=== PATIENT | male | born 1960 | race Caucasian/White ===

== ENCOUNTER 2022-03-22 07:35 | Outpatient (CLI) | payer MEDICARE, MEDICAID, SELFPAY ==
--- NOTE | 2022-03-22 17:43 | P.NST_ITS ---
Nuclear Stress Test INDICATIONS Indications: CP PROCEDURE Procedure Performed: Myocardial Perf Spect-Multi Procedure: Patient underwent a lexiscan stress test and immediately was injected with 34.0 mCi of cardiolyte. Multiple tomographic images were obtained. These are of good quality. There is evidence of small size, mild severity inferior perfusion defect with stress imaging. A separate resting images were obtained after patient was injected with 10.4 mCi of cardiolyte. Multiple tomographic images were obtained. These are of good quality. There is evidence of moderate size, moderate severity inferior per fusion defect with rest imaging. CONCLUSION Conclusion: 1. Myocardial perfusion imaging demonstrating reverse redistribution in inferior wall suggestive of diaphragmatic attenuation artifact. 2. No evidence of reversible ischemia. 3. Left ventriculogram demonstrates normal measured ejection fraction of 68% and no wall motion abnormalities. 4. TID score of 0.96 is normal.
== END 2022-03-22 07:36 | disposition home or self-care (01) ==
PROVIDERS: PCP Family Medicine; Visit Provider Family Medicine
DX: R07.9 Chest pain, unspecified (principal)
CPT/HCPCS: 78452; 93017; A9502; J2785

== ENCOUNTER 2024-03-21 13:22 | Inpatient (IN) | payer MEDICARE, SELFPAY ==
--- NOTE | ~2024-03-21 | XR_ITS ---
EXAMINATION: XR chest 1V DATE: 03/21/2024 14:12 INDICATION: Fall TECHNIQUE: frontal view of the chest was obtained. COMPARISON: Chest radiograph dated 03/28/[address] dated 12/23/2014 FINDINGS: Volume loss in right hemithorax with blunting at the right costophrenic angle consistent with prior r ight lower lobectomy as seen on prior CT. Chronic calcified nodule in the left lower lung zone consis tent with old granulomatous disease. No pneumonia, pulmonary edema, pleural effusion or pneumothorax. The cardiomediastinal silhouette is normal. There is deformity of the anterior right first and secon d ribs which appear to fuse anteriorly. IMPRESSION: 1. Status post right lower lobectomy. No acute cardiopulmonary disease Reviewed, dictated and finalized at location B.
--- NOTE | ~2024-03-21 | XR_ITS ---
EXAMINATION: XR hip LT 2V w AP pelvis DATE: 03/21/2024 14:12 INDICATION: Left hip injury. Fall. TECHNIQUE: An anteroposterior view of the pelvis and 2 views of left hip were obtained. COMPARISON: None. FINDINGS: There is an intertrochanteric fracture of proximal left femur. The distal fracture fragment demonstrates mild posterior angulation. There is mild osteoarthritis of the hips. IMPRESSION: 1. Intertrochanteric fracture of proximal left femur. 2. Mild osteoarthritis of the hips. Reviewed, dictated and finalized at location A.
--- NOTE | ~2024-03-21 | CT_ITS ---
EXAMINATION: CT hip LT wo con DATE: 03/21/2024 15:08 INDICATION: Left hip fracture. TECHNIQUE: Computed tomography (CT) of the left hip was performed without intravenous contrast. Autom ated exposure control and iterative reconstruction technique were employed. The dose-length product w as 491.58 mGy-cm. COMPARISON: Pelvis and left hip radiographs 03/21/2024 FINDINGS: There is a comminuted intertrochanteric fracture of proximal left femur. The distal fractur e main distal fracture fragment demonstrates 24 degrees posterior angulation and 10 degrees varus ang ulation. There is mild left hip osteoarthritis. IMPRESSION: 1. Comminuted intertrochanteric fracture of proximal left femur. 2. Mild left hip osteoarthritis. Reviewed, dictated and finalized at location A.
--- NOTE | ~2024-03-21 | XR_ITS ---
EXAMINATION: XR knee LT 3V DATE: 03/21/2024 14:12 INDICATION: Left knee injury. Fall. TECHNIQUE: 3 views of left knee were obtained. COMPARISON: None. FINDINGS: Alignment is normal. No fracture. There is mild tricompartmental osteoarthritis. No knee gabriella int effusion. IMPRESSION: 1. Mild left knee osteoarthritis. Reviewed, dictated and finalized at location A.
--- NOTE | ~2024-03-21 | XR_ITS ---
EXAMINATION: XR surgery orthopedic DATE: 03/22/2024 13:20 INDICATION: Intratrochanteric fracture for internal fixation TECHNIQUE: 9 fluoroscopic images of the left hip and femur were obtained during procedure performed madhu Arellano. Radiologist was not present for the imaging or procedure. The amount of fluoroscopy t vitaly used during this procedure was 1.0 minutes. Total DAP was 2.717 Gycm^2 COMPARISON: 03/21/24 FINDINGS: Interval open reduction internal fixation of the previously seen intertrochanteric fracture the proximal left femur. The fracture is fixed with and lateral antegrade intramedullary danisha with fe moral neck dynamic compression screw and proximal diaphyseal interlocking screw. Alignment post fixat ion appears near anatomic alignment with residual mild posterior displacement. Mild left hip osteoart hritis better appreciated on the prior radiographs. No new fractures identified. IMPRESSION: 1. Near-anatomic alignment post open reduction internal fixation of intertrochanteric fracture the pr oximal left femur. Reviewed, dictated and finalized at location B. IMPRESSION: 1. Near-anatomic alignment post open reduction internal fixation of intertrocha nteric fracture the proximal left femur.
[2024-03-21 13:32] VITALS: BP 115/77; PULSE 98; RESP 18; TEMP 36.7; O2SAT 97
--- NOTE | 2024-03-21 14:09 | ECG_ITS ---
Test Date: 2024-03-21 14:15:54 Measurements Intervals [place] Rate: 91 P: 19 AK: 117 QRS: 89 QRSD: 101 T: 80 QT: 359 QTc: 442 Interpretive Statements SINUS RHYTHM INCOMPLETE RIGHT BUNDLE BRANCH BLOCK BASELINE ARTIFACT- I, II, III, AVR, AVL, AVF BORDERLINE ECG No previous ECG available for comparison Electronically Signed On 03-21-2024 14:39:10 CDT by Umesh Avelar D.O.
[2024-03-21] MEDS: MORPHINE SULFATE (*CRX) 4 MG/ML INJ IV PUSH (14:11)
[2024-03-21 14:20] VITALS: BP 92/75; PULSE 86; RESP 18; O2SAT 95
[2024-03-21 14:24] LABS: Basophils Absolute Auto 0.1 K/mm3 (0.0-0.1); Basophils Percent Auto 0.8 % (0.2-1.2); Eosinophils Absolute Auto 0.3 K/mm3 (0-0.3); Eosinophils Percent Auto 4.5 % (0-4.4); Hematocrit 48.8 % (42.0-52.0); Hemoglobin 15.8 g/dL (14.0-18.0); Immature Granulocyte Absolute 0.04 K/mm3 (0.00-0.031); Immature Granulocyte Percent A 0.5 % (0-0.5); Lymphocytes Absolute Auto 1.43 K/mm3 (0.9-3.2); Lymphocytes Percent Auto 19.1 % (18.3-44.2); Mean Corpuscular HGB Conc 32.4 g/dl (32-36); Mean Corpuscular Hemoglobin 31.1 pg (26-34); Mean Corpuscular Volume 96.1 fl (80-100); Mean Platelet Volume 10.8 fl (7.4-10.4); Monocytes Absolute Auto 0.7 K/mm3 (0.1-0.6); Monocytes Percent Auto 8.7 % (2.6-8.5); Neutrophils Percent Auto 66.4 % (45.5-73.1); Platelet Count Result 216 k/mm3 (150-375); Red Blood Count 5.08 M/mm3 (4.6-6.20); Red Cell Distribution Width 13.3 % (11.5-14.5); White Blood Count 7.5 K/mm3 (4.5-10.0)
[2024-03-21] MEDS: SODIUM CHLORIDE 0.9% IV 1,000 ML 999 ML IV CONT (14:35)
[2024-03-21 14:36] LABS: Partial Thromboplastin Time 28.4 Seconds (22.3-36.8); Prothrombin Time 13.4 Seconds (11.1-14.7)
[2024-03-21 14:40] VITALS: BP 127/71; PULSE 86; RESP 14; O2SAT 96
[2024-03-21 14:42] LABS: Alanine Aminotransferase 16 U/L (6-50); Albumin Level 4.1 g/dL (3.5-5.1); Alkaline Phosphatase 72 U/L (38-126); Anion Gap 8 mmol/L (4-12); Aspartate Amino Transferase 33 U/L (17-59); Bilirubin,Total 0.7 mg/dL (0.2-1.3); Blood Urea Nitrogen 23 mg/dL (9-20); Calcium 8.8 mg/dL (8.4-10.2); Carbon Dioxide 28 mmol/L (22-30); Chloride 102 mmol/L (98-107); Estimated CRCL calculation 50 ml/min; Estimated Glomerular Filt Rate > 60; Glucose 97 mg/dL (65-110); Potassium 4.9 mmol/L (3.4-5.0); Sodium 138 mmol/L (137-145)
--- NOTE | 2024-03-21 14:53 | ED.FALL ---
HPI - Fall General Chief Complaint: Fall Stated Complaint: left hip injury Time Seen by Provider: 03/21/24 13:28 History of Present Illness HPI Narrative: Patient is a 63-year-old male who presents ER after a fall. He was trying to open his walker when getting out of his car when it did not open causing him to fall onto his left side. He had sudden-onset pain in his hip and cannot stand up. He feels like there is a deformity. Denies striking his head or losing consciousness. He is not on any blood thinning medications. He did hit his knee in the fall as well. Pain is worse with movement of the lower extremity. No numbness or tingling. Related Data Home Medications Medication Instructions Recorded Confirmed duloxetine 60 mg capsule,delayed 60 mg PO BID 03/21/24 03/21/24 release Allergies Allergy/AdvReac Type Severity Reaction Status Date / Time No Known Allergies Allergy Unknown Verified 03/22/22 08:39 Review of Systems Review of Systems: All systems reviewed & are unremarkable except as noted in HPI and below Constitutional: Constitutional: Reports no additional constitutional complaints ENT: Reports system reviewed and no additional complaints, except as documented Cardiovascular: Cardiovascular: Reports no additional cardiovascular complaints Respiratory: Respiratory: Reports no additional respiratory complaints Musculoskeletal: Musculoskeletal: Reports arthralgias, Reports joint swelling and Denies muscle cramps Neurologic: Reports system reviewed and no additional complaints, except as documented [facility] Past Medical History Medical History (Updated 03/21/24 @ 19:16 by Zachary Martin MD) Cervical vertebral fusion Closed intertrochanteric fracture of left hip Depression Fall from standing Lung cancer Lupus Paraneoplastic syndrome Surgical History Surgical History History of lobectomy of lung Social History Social History Smoking packs per day: 1 Smoking cigarettes per day: 20.0 Smoking status: Current every day smoker Tobacco type: cigarettes Alcohol intake: never Substance use: current Substance use type: marijuana Do You Feel Safe in your Home?: Yes Lack of Transportation: No Lack of Food: Never True Current Housing: I Have Housing Concerned About Future Housing: No Difficulty Paying Gas/Electric Bills: No Difficulty Paying for Meds: No Currently Unemployed: No Education: Decline to Answer Difficulty w/ Childcare or Family Care: No Spiritual care concerns: No Exam Narrative: GENERAL: Well-appearing, well-nourished, and in no acute distress. HEAD: Normocephalic, atraumatic. ENT: Mucous membranes moist. CHEST: Clear to auscultation. No respiratory distress. HEART: Regular rate and rhythm. Normal peripheral pulses. ABDOMEN: Soft, nontender, nondistended. EXTREMITIES: Left lower extremity with abrasion over the knee in tenderness over left hip with limited range of motion due to pain. After pain medication able get out to full extension and no external rotation or shortening. SKIN: Warm, dry, no rash. NEURO: No focal deficits. Alert and oriented x3. PSYCH: Normal mood and affect. Course Course Emergency Course: Orthopedic surgery consulted for hip fracture. At on CT scan at their request. Admit to hospitalist service. NPO at midnight. Patient where of diagnosis and treatment plan and need for surgery. Vital Signs Vital signs: Vital Signs Temperature 98.1 F 03/21/24 13:32 Pulse Rate 98 03/21/24 13:32 Respiratory Rate 18 03/21/24 13:32 Blood Pressure 115/77 03/21/24 13:32 Pulse Oximetry 97 03/21/24 13:32 Oxygen Delivery Room Air 03/21/24 13:32 Temperature 98.1 F 03/21/24 13:32 Pulse Rate 81 03/21/24 15:32 Respiratory Rate 20 03/21/24 15:32 Blood Pressure 119/74 03/21/24 15:32 Pu
[2024-03-21 15:32] VITALS: BP 119/74; PULSE 81; RESP 20; O2SAT 100
--- NOTE | 2024-03-21 15:39 | PM.CNOR ---
Assessment and Plan Assessment and plan (1) Closed intertrochanteric fracture of left hip: Qualifiers: Encounter type: initial encounter Fracture alignment: displaced Qualified Code(s): S72.142A - Displaced intertrochanteric fracture of left femur, initial encounter for closed fracture Code(s): S72.142A - Displaced intertrochanteric fracture of left femur, initial encounter for closed fracture Status: Acute Assessment and Plan: New patient evaluation for chief complaint fall with left hip injury. History, physical exam and radiographs reviewed with the patient. Discussed the condition, nature, etiology and course of natural history with the patient. Treatment options including surgical and nonoperative treatment were reviewed. Risks and benefits of each as well as alternatives reviewed. The patient's questions were answered. Conservative treatment ice, mechanical DVT prophylaxis, pain control. (2) Fall from standing: Qualifiers: Encounter type: initial encounter Qualified Code(s): W19.XXXA - Unspecified fall, initial encounter Code(s): W19.XXXA - Unspecified fall, initial encounter Status: Acute (3) Foot drop, left: Code(s): M21.372 - Foot drop, left foot Status: Acute Assessment and Plan: S/P surgery. Still with drop foot. Plan Discussed nonoperative and operative treatment options with the patient. Risks and benefits of each as well as alternatives were reviewed. All of the patient's questions were answered. The risks of surgery reviewed including but not limited to: Neurovascular damage, wound complication, infection, blood clot, pulmonary embolus, stroke, myocardial infarction, and anesthetic risks up to and including . Continued pain and possible dysfunction were explained. Specific risks of the procedure including later recurrence of deformity. No guarantees were offered. If hardware used, discussed risk of failure/ breakage and possible need for removal. If complications occur, the patient understands the need for further treatment, possible further surgery. specific surgical treatment with reduction of the fracture on a fracture table and stabilization with intramedullary hip screw/trochanteric nail discussed. Patient verbalizes understanding and wishes to proceed. PLAN: left hip trochanteric nail History of Present Illness HPI Consult date: 03/22/24 Requesting physician: Zachary Martin MD Consult reason: fracture ( left hip) Chief complaint: intertrochanteric fracture Narrative: 63-year-old with history of lung cancer who normally ambulates with walker. Was at home adjusting his walker when he fell onto the left side. Described left hip pain. Inability to ambulate or put weight on left leg. Brought to the emergency room at [facility]. found to have left hip fracture. History of previous right lower lobe resection secondary to cancer. 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 Underwent some sort of surgical peroneal plasty to help with left lower extremity drop foot. Complains of continued drop foot on the left side with decreased mobility of the ankle. Review of Systems Constitutional: Constitutional: Denies fever(s) Eyes: Eyes: Denies blurry vision ENT: Reports Normal hearing present Cardiovascular: Cardiovascular: Denies chest pain and Denies dyspnea Respiratory: Respiratory: Denies dyspnea and Denies wheezing Gastrointestinal: Gastrointestinal: Denies abdominal pain Genitourinary: Genitourinary: Denies urinary urgency Musculoskeletal: Musculoskeletal: Reports as per HPI and Denies numbness Integumentary/Breasts: Skin/Breast: Denies changing lesions and Denies sores Neurologic: Reports Normal hearing present, Denies behavioral changes, Denies confusion, Denies numbness and Denies convulsions Psychiatric: Psychiatric: Denies behavioral changes, Denies confusion and Denies h
--- NOTE | 2024-03-21 16:53 | PM.IMHP ---
H&P: HPI History of Present Illness Date/Time: 03/21/24 16:53 Chief Complaint: Fall Narrative: 63 y/o M presents here with fall with PMH of lupus, depression, lung cancer s/p lobectomy, g-tube in place, and paraneoplastic syndrome. The patient presents here from home via EMS for further evaluation of left hip pain s/p ground level fall. The patient reports he was transferring from his car to his walker when the walker did not open up sliding forward and patient fell to the left. The patient landed first on his left knee and then his left hip. He denies head strike or loss of consciousness. Patient was unable to bear weight on the left lower extremity or move his left lower extremity without significant pain after the fall. Patient denies focal numbness, tingling, or weakness. Patient reports at baseline he utilizes a power chair and walker for mobility assistance. No other complaints at this time. Initial VS at presentation: 98.1? F, HR 98, RR 18, 115/77, and 97% on RA. ED workup showed: No leukocytosis, no anemia, normal coags, no significant electrolyte derangements, creatinine 1.2 and GFR >60. Hip and pelvis XR showed an intratrochanteric fracture of the proximal left femur. CXR showed s/p right lower lobectomy, otherwise no acute cardiopulmonary disease. CXR showed mild left knee osteoarthritis. Hip CT showed a comminuted intratrochanteric fracture of the proximal left femur and mild left hip osteoarthritis. Review of Systems Review of Systems: All systems reviewed & are unremarkable except as noted in HPI and below PMFSH Past Medical History Medical History Cervical vertebral fusion Closed intertrochanteric fracture of left hip Depression Fall from standing G tube feedings Placed in 2010 Lung cancer Lupus SLE Paraneoplastic syndrome Surgical History Surgical History History of lobectomy of lung History of spinal fusion (1995) Social History Social History Smoking packs per day: 1 Smoking cigarettes per day: 20.0 Smoking status: Current every day smoker Tobacco type: cigarettes Alcohol intake: never Substance use: current Substance use type: marijuana Do You Feel Safe in your Home?: Yes Lack of Transportation: No Lack of Food: Never True Current Housing: I Have Housing Concerned About Future Housing: No Difficulty Paying Gas/Electric Bills: No Difficulty Paying for Meds: No Currently Unemployed: No Education: Decline to Answer Difficulty w/ Childcare or Family Care: No Spiritual care concerns: No Meds Home Medications and Allergies Home Medications Medication Instructions Recorded Confirmed Type duloxetine 60 mg capsule,delayed 60 mg PO BID 03/21/24 03/21/24 History release Allergies Allergy/AdvReac Type Severity Reaction Status Date / Time No Known Allergies Allergy Unknown Verified 03/22/22 08:39 Vital Signs Vital Signs - 24 hr 03/21/24 13:32 03/21/24 14:20 03/21/24 14:40 Temperature 98.1 F Pulse Rate 98 86 86 Respiratory Rate 18 18 14 Blood Pressure 115/77 92/75 L 127/71 Pulse Oximetry 97 95 96 Oxygen Delivery Room Air 03/21/24 15:32 Temperature Pulse Rate 81 Respiratory Rate 20 Blood Pressure 119/74 Pulse Oximetry 100 Oxygen Delivery Exam Narrative: dysarthria, chronic. feet cool to the touch, symmetric. DP pulse 1+ bilaterally. No shortening or rotation of LLE. tenderness over left hip. Const: General: comfortable and no acute distress Other: , male, nontoxic appearance HENMT: Face/Nose/Sinus: Normal nares present Mouth: Yes moist mucous membranes Eyes: General: appearance normal, both eyes and all related structures Sclera: sclerae normal Pupils: Equal, round and reactive pupils present EOM: EOMs intact bilate
[2024-03-21] MEDS: MORPHINE SULFATE (*CRX) 2 MG/ML INJ IV PUSH (17:02)
[2024-03-21 17:04] VITALS: BMI 18.1
--- NOTE | 2024-03-21 17:11 | ADMGEN ---
This patient, Nirmal Chauhan, was admitted to Medical Room 249-01. Patient/family oriented to hospital policies and general routines including ID bracelet, bed and alarms, visiting hours, pain management, procedures, bathroom and other care routines, personal items, smoking policy, room service/diet, and visiting hours. Information on how to activate the Rapid Response Team has been discussed. Patient/Family are encouraged to report perceived risks to care and to ask questions if they do not understand what they are told or what they should do.
--- NOTE | 2024-03-21 18:53 | PC.NURSE ---
Patient with G-tube from home. States that since 2009 patient has been unable to swallow. Per patient, he normally blends up food throughout the day and put it through his tube. 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 Provider unsure and states she will consult another provider and get back to me.
[2024-03-21 21:59] VITALS: BP 129/80; PULSE 88; RESP 18; TEMP 36.7; O2SAT 97
[2024-03-22] VITALS (16 sets, daily range): BP systolic 117–147; BP diastolic 62–77; PULSE 68–85; RESP 14–18; TEMP 36.3–37.1; O2SAT 93–100; BMI 18.1
--- NOTE | 2024-03-22 07:22 | PC.NURSE ---
Pt taken to OR via bed @ 0385.
[2024-03-22] MEDS: ACETAMINOPHEN 500 MG TABLET 1000 MG PO (07:50)
[2024-03-22] MEDS: KETOROLAC 15 MG/ML VIAL (*BKC) IV PUSH (07:50)
[2024-03-22] MEDS: LACTATED RINGERS 1,000 ML 30 ML IV CONT (07:50)
--- NOTE | 2024-03-22 07:52 | WPDHPUPDATE1 ---
History and Physical Update Update Date/Time: 03/22/24 07:52 History and Physical has been reviewed, including an updated exam of the patient. There are NO changes in the patient's condition. Risks, benefits, and alternatives have been discussed and questions answered. Patient agrees to proceed with procedure.
--- NOTE | 2024-03-22 08:27 | WPDANESEPPF ---
Anes - Initial Pre Proc Eval Procedure: Operation Date: 03/22/24 08:30 Proposed Procedures p Left Hip Trochchanteric Nail - Frank Francis MD Date/Time: 03/22/24 08:27 Surgeon: Lois Adrian APRN Pre Op Diagnosis: intertrochanteric fracture Patient Data Age: 63 Gender: M Height: 1.85 m Weight: 62.3 kg Last Vital Signs Temp 37.1 C 03/22/24 07:47 Pulse 85 03/22/24 07:47 Resp 18 03/22/24 04:00 BP 146/62 H 03/22/24 07:47 Pulse Ox 96 03/22/24 08:07 O2 Del Method Room Air 03/22/24 08:07 FiO2 21 03/22/24 08:07 Allergies Allergy/AdvReac Type Severity Reaction Status Date / Time No Known Allergies Allergy Unknown Verified 03/22/22 08:39 Home Medications Medication Instructions Recorded Confirmed Type duloxetine 60 mg capsule,delayed 60 mg PO BID 03/21/24 03/21/24 History release Laboratory Tests 03/21/24 14:15 WBC 7.5 K/mm3 (4.5-10.0) RBC 5.08 M/mm3 (4.6-6.20) Hgb 15.8 g/dL (14.0-18.0) Hct 48.8 % (42.0-52.0) MCV 96.1 fl (80-100) MCH 31.1 pg (26-34) MCHC 32.4 g/dl (32-36) RDW 13.3 % (11.5-14.5) Plt Count 216 k/mm3 (150-375) MPV 10.8 H fl (7.4-10.4) Immature Gran % (Auto) 0.5 % (0-0.5) Neut % (Auto) 66.4 % (45.5-73.1) Lymph % (Auto) 19.1 % (18.3-44.2) [place] % (Auto) 8.7 H % (2.6-8.5) Eos % (Auto) 4.5 H % (0-4.4) Baso % (Auto) 0.8 % (0.2-1.2) Lymph # (Auto) 1.43 K/mm3 (0.9-3.2) [place] # (Auto) 0.7 H K/mm3 (0.1-0.6) Eos # (Auto) 0.3 K/mm3 (0-0.3) Baso # (Auto) 0.1 K/mm3 (0.0-0.1) Abs Immat Gran (auto) 0.04 H K/mm3 (0.00-0.031) Absolute Neuts (auto) 5.0 K/mm3 (1.3-6.7) Absolute Nucleated RBC 0.000 K/mm3 (0.0-0.012) Nucleated RBC % 0.0 % (0.0-0.2) PT 13.4 Seconds (11.1-14.7) INR 1.0 APTT 28.4 Seconds (22.3-36.8) Sodium 138 mmol/L (137-145) Potassium 4.9 mmol/L (3.4-5.0) Chloride 102 mmol/L (98-107) Carbon Dioxide 28 mmol/L (22-30) Anion Gap 8 mmol/L (4-12) BUN 23 H mg/dL (9-20) Creatinine 1.20 mg/dL (0.7-1.3) Estim Creat Clear Calc 50 ml/min Estimated GFR > 60 (59 - ) Glucose 97 mg/dL (65-110) Calcium 8.8 mg/dL (8.4-10.2) Total Bilirubin 0.7 mg/dL (0.2-1.3) AST 33 U/L (17-59) ALT 16 U/L (6-50) Alkaline Phosphatase 72 U/L (38-126) Total Protein 7.0 g/dL (6.3-8.2) Albumin 4.1 g/dL (3.5-5.1) Blood Type B Positive Antibody Screen Negative Patient hx anesthesia problems: none Family hx anesthesia problems: none Results Review: All pre-operative results and documents have been reviewed as part of the pre-operative evaluation. [facility] Past Medical History Medical History Cervical vertebral fusion Closed intertrochanteric fracture of left hip Depression Fall from standing Foot drop, left G tube feedings Placed in 2010 Lung cancer Lupus SLE Paraneoplastic syndrome Surgical History Surgical History History of lobectomy of lung History of spinal fusion (1995) Social History Social History Smoking packs per day: 1 Smoking cigarettes per day: 20.0 Smoking status: Current every day smoker Tobacco type: cigarettes Alcohol intake: never Substance use: current Substance use type: marijuana Do You Feel Safe in your Home?: Yes Lack of Transportation: No Lack of Food: Never True Current Housing: I Have Housing Concerned About Future Housing: No Difficulty Paying Gas/Electric Bills: No Difficulty Paying for Meds: No Currently Unemployed: No Education: Decline to Answer Difficulty w/ Childcare or Family Care: No Spiritual care concerns: No Anes - Eval Final PreProcedure Day of Procedu
--- NOTE | 2024-03-22 08:49 | P.PNIM_ITS ---
Progress Note: A&P Assessment and Plan (1) Closed intertrochanteric fracture of left hip: Code(s): S72.142A - Displaced intertrochanteric fracture of left femur, initial encounter for closed fracture Status: Acute Assessment and Plan: * XR and CT reviewed * Orthopedics consulted * NPO after midnight * plan for left hip trochanteric nail 03/22 * Pain control * Antiemetics * Prophylactic antibiotics pre-surgery * SCD's * PT/OT post surgery * PPI (2) Fall from standing: Qualifiers: Encounter type: initial encounter Qualified Code(s): W19.XXXA - Unspecified fall, initial encounter Code(s): W19.XXXA - Unspecified fall, initial encounter Status: Acute Assessment and Plan: * mechanical due to malfunction of walker * will need PT/OT post surgical management of fracture * consider consultation to our care coordination for possible placement postoperatively * fall precautions (3) G tube feedings: Code(s): Z93.1 - Gastrostomy status Status: Acute Assessment and Plan: * at baseline patient blends his meals and gives it to himself through his G- tube, will discontinue this practice while in-patient * dietitian consulted for assistance with 2 feedings * Vital high protein continuous until discharge * elevate head of bed 45 to prevent aspiration Plan Code status: Full code per patient DVT prophylaxis: SCD's prior surgery Stress ulcer prophylaxis: Pepcid PT/OT notes: PT/OT pending surgery Disposition: Patient continues admission to the medical unit post hip surgery in no acute distress PT/OT pending for discharge recs. Time Spent With Patient Time with patient: 15 - 25 minutes Subjective Date/time seen: 03/22/24 08:49 Interval history: Admission: 63 y/o M presents here with fall with PMH of lupus, depression, lung cancer s/p lobectomy, g-tube in place, and paraneoplastic syndrome. The patient presents here from home via EMS for further evaluation of left hip pain s/p ground level fall. The patient reports he was transferring from his car to his walker when the walker did not open up sliding forward and patient fell to the left. The patient landed first on his left knee and then his left hip. He denies head strike or loss of consciousness. Patient was unable to bear weight on the left lower extremity or move his left lower extremity without significant pain after the fall. Patient denies focal numbness, tingling, or weakness. Patient reports at baseline he utilizes a power chair and walker for mobility assistance. No other complaints at this time 03/22/24: Assumed Care Patient seen post-op doing well with no complaints, minimal pain. Started patient on tube feedings high protein for healing. Patient denied CP, SOB, fever, chills, N/V. Site clean and dry no swelling or erythema. Review of Systems Review of Systems: All systems reviewed & are unremarkable except as noted in HPI and below Exam Const: General: comfortable and no acute distress Other: , male, nontoxic appearance [facility]:
--- NOTE | 2024-03-22 08:49 | PM.IMPN ---
Progress Note: A&P Assessment and Plan (1) Closed intertrochanteric fracture of left hip: Code(s): S72.142A - Displaced intertrochanteric fracture of left femur, initial encounter for closed fracture Status: Acute Assessment and Plan: XR and CT reviewed Orthopedics consulted NPO after midnight plan for left hip trochanteric nail 03/22 Pain control Antiemetics Prophylactic antibiotics pre-surgery SCD's PT/OT post surgery PPI (2) Fall from standing: Qualifiers: Encounter type: initial encounter Qualified Code(s): W19.XXXA - Unspecified fall, initial encounter Code(s): W19.XXXA - Unspecified fall, initial encounter Status: Acute Assessment and Plan: mechanical due to malfunction of walker will need PT/OT post surgical management of fracture consider consultation to our care coordination for possible placement postoperatively fall precautions (3) G tube feedings: Code(s): Z93.1 - Gastrostomy status Status: Acute Assessment and Plan: at baseline patient blends his meals and gives it to himself through his G-tube, will discontinue this practice while in-patient dietitian consulted for assistance with 2 feedings Vital high protein continuous until discharge elevate head of bed 45 to prevent aspiration Plan Code status: Full code per patient DVT prophylaxis: SCD's prior surgery Stress ulcer prophylaxis: Pepcid PT/OT notes: PT/OT pending surgery Disposition: Patient continues admission to the medical unit post hip surgery in no acute distress PT/OT pending for discharge recs. Time Spent With Patient Time with patient: 15 - 25 minutes Subjective Date/time seen: 03/22/24 08:49 Interval history: Admission: 63 y/o M presents here with fall with PMH of lupus, depression, lung cancer s/p lobectomy, g-tube in place, and paraneoplastic syndrome. The patient presents here from home via EMS for further evaluation of left hip pain s/p ground level fall. The patient reports he was transferring from his car to his walker when the walker did not open up sliding forward and patient fell to the left. The patient landed first on his left knee and then his left hip. He denies head strike or loss of consciousness. Patient was unable to bear weight on the left lower extremity or move his left lower extremity without significant pain after the fall. Patient denies focal numbness, tingling, or weakness. Patient reports at baseline he utilizes a power chair and walker for mobility assistance. No other complaints at this time 03/22/24: Assumed Care Patient seen post-op doing well with no complaints, minimal pain. Started patient on tube feedings high protein for healing. Patient denied CP, SOB, fever, chills, N/V. Site clean and dry no swelling or erythema. Review of Systems Review of Systems: All systems reviewed & are unremarkable except as noted in HPI and below Exam Const: General: comfortable and no acute distress Other: , male, nontoxic appearance HENMT: Face/Nose/Sinus: Normal nares present Mouth: Yes moist mucous membranes Eyes: General: appearance normal, both eyes and all related structures Sclera: sclerae normal Pupils: Equal, round and reactive pupils present EOM: EOMs intact bilaterally Resp: Effort & Inspection: normal respiratory effort Auscultation: clear to auscultation bilaterally Cardio: Rate: regular rate Rhythm: regular rhythm Other: S1-S2 present without murmur, rub, ectopy GI: Other: Abdomen soft, nondistended, nontender. Skin: General skin exam: normal color and no rashes or lesions noted Other: Small abrasion to left knee with no active bleeding. Skin cold to the touch to bilateral lower extremities starting at ankles, symmetric. Neuro: Cranial nerves: Yes Equal, round and reactive pupils present Motor exam (neuro): 5/5 quang
[2024-03-22] MEDS: ceFAZolin 2 GM/D5W 50 ML 2 GM/50 ML BAG IVPB (09:00)
[2024-03-22] MEDS: BUPIVACAINE/EPINEPHRINE 0.5% 50 ML VIAL 20 ML INFILTRATE (09:25)
--- NOTE | 2024-03-22 10:27 | W.PM.PROC2 ---
Procedure Note - Detailed Date of Procedure 03/22/24 Pre-op Diagnosis Left hip intertrochanteric fracture Post-op Diagnosis Same Procedure Performed reduction with intramedullary nail fixation left hip intertrochanteric fracture Surgeon Frank Francis MD Online Journalist 1st machine assistant Anesthesia General Indications 63-year-old with history of lung cancer who fell and sustained left hip intertrochanteric fracture. Desires operative treatment. Indicated for intramedullary danisha fixation. Description of Procedure After informed consent the operative extremity was marked in the preoperative holding area. Patient received intravenous antibiotics. The patient was taken to the operative room, placed in the supine position, general anesthesia induced by the anesthesia team, and was placed on a fracture table with longitudinal traction applied to the left leg. The hip fracture was reduced to near anatomic position and verified with image intensification. A time-out was performed confirming the patient, site of the surgery and plan. The left lower extremity was prepped and draped sterilely from the knee to the iliac crest region using a ChloraPrep skin solution. Incision was made just proximal to greater trochanter down to the subcutaneous tissues. Hemostasis controlled with electrocautery. Blunt dissection through the fascia to the tip of the greater trochanter. A starter awl was placed at the tip of the greater trochanter into the medullary canal of the femur. This was checked with image intensification and was in good position. Intramedullary guide danisha positioned. A one-step hand reaming done proximally. Intramedullary canal was reamed with a 12.5 millimeter flexible reamer. Measuring was then performed off of the guide danisha. Neck angle selected off of preoperative radiographs temp plating. 125 degree 11 X 420mm Nail opened on the back table and assembled. This was then inserted over the guide danisha to the correct depth. Guide danisha removed. Lag screw was then placed with a stab incision over the lateral femur using a 10 blade knife. Blunt dissection down to the lateral side of the bone. Soft tissue protectors placed. Guide pin placed in the center center position of the femoral head and measured. millimeter x 10 millimeter lag screw placed to correct depth and verified with image intensification. Traction released from the leg and compression of the fracture performed with the external compression device. Proximal locking screw placed. Distal locking of the nail necessary due to instability in the intramedullary canal and proximal femur. Stab incision made lateral distal thigh. Blunt dissection down lateral side of the femur. Image intensification used to guide drill which was placed through the locking hole. Distal femur measured and the appropriate size screw placed. Image intensification confirmed the placement through the locking hole. Final image intensification confirm reduction of the fracture and placement of the hardware. Wounds then thoroughly irrigated with antibiotic solution. Fascia repaired with 0 Vicryl interrupted suture. Subcutaneous tissue repaired with 00 Vicryl interrupted suture and skin repaired with Subcuticular 3-0 Monocryl interrupted and running suture with Dermabond for the skin. Sterile dressings applied. Patient then awoke from anesthesia, extubated, taken to recovery room stable condition. All sponge, needle and instrument counts correct at the end the case. Estimated Blood Loss 200 Urine Output 400 Drains No Packing No Pathology None sent Complications None Condition Stable Disposition PACU [facility] Billing Surgery - Charge Forward: Surgery Billing ([id number])
[2024-03-22] MEDS: HYDROcodone/acetaminophen (*CRX) 5-325 MG TABLET 1 TAB FEED TUBE ×2 (12:09→22:56)
[2024-03-22] MEDS: FAMOTIDINE 20 MG TABLET FEED TUBE (12:09)
[2024-03-22] MEDS: SODIUM CHLORIDE 0.9% IV 1,000 ML 80 ML IV CONT (12:09)
[2024-03-22 13:20] LABS: Hematocrit 43.7 % (42.0-52.0); Hemoglobin 14.1 g/dL (14.0-18.0); Mean Corpuscular HGB Conc 32.3 g/dl (32-36); Mean Corpuscular Hemoglobin 31.1 pg (26-34); Mean Corpuscular Volume 96.3 fl (80-100); Mean Platelet Volume 9.9 fl (7.4-10.4); Platelet Count Result 162 k/mm3 (150-375); Red Blood Count 4.54 M/mm3 (4.6-6.20); White Blood Count 10.6 K/mm3 (4.5-10.0)
[2024-03-22 13:35] LABS: Alanine Aminotransferase 17 U/L (6-50); Albumin Level 3.7 g/dL (3.5-5.1); Alkaline Phosphatase 68 U/L (38-126); Anion Gap 7 mmol/L (4-12); Aspartate Amino Transferase 29 U/L (17-59); Bilirubin,Total 0.7 mg/dL (0.2-1.3); Blood Urea Nitrogen 21 mg/dL (9-20); Calcium 8.1 mg/dL (8.4-10.2); Carbon Dioxide 27 mmol/L (22-30); Chloride 101 mmol/L (98-107); Estimated CRCL calculation 54 ml/min; Estimated Glomerular Filt Rate > 60; Glucose 106 mg/dL (65-110); Potassium 4.4 mmol/L (3.4-5.0); Sodium 135 mmol/L (137-145)
--- NOTE | 2024-03-22 13:54 | PC.NURSE ---
Started continuous Jevity 1.5 feed at 1345. Every 4 hours flush with 100ml water and increase feed rate by 10mls/hour until goal rate of 65mls/hr met.
--- NOTE | 2024-03-22 13:56 | PCDIET ---
Spoke with hospitalist today. New orders for Jevity 1.5 at 30 ml/hr advance by 10 ml q 4 hours to goal rate of 65 ml/hr. Flush 100 ml q 4 hours. Will continue to monitor every Tuesday and Tuesday.
[2024-03-22] MEDS: SENNA/DOCUSATE SODIUM TABLET 2 TAB PO (17:44)
[2024-03-22] MEDS: ceFAZolin 1 GM/NS 50 ML 1 GM/50 ML BAG IVPB (17:44)
--- NOTE | 2024-03-22 17:47 | PC.NURSE ---
At 1745 rate changed from 30 to 40mls/hour on continuous tube feed rate
--- NOTE | 2024-03-22 21:40 | PC.NURSE ---
Pt tolerating Jevity 1.5 @ 40ml/hr with no c/o nausea or abd pain. Rate increased from 40ml/hr to 50ml/hr.
[2024-03-23] VITALS: BP 111/58; PULSE 90; RESP 18; TEMP 37; O2SAT 95
[2024-03-23] MEDS: ceFAZolin 1 GM/NS 50 ML 1 GM/50 ML BAG IVPB ×2 (00:04→09:23)
[2024-03-23 00:09] VITALS: BP 111/58; PULSE 90; RESP 18; TEMP 37; O2SAT 95
--- NOTE | 2024-03-23 03:07 | PC.NURSE ---
Pt tolerating Jevity 1.5 @ 50ml/hr. Increased to 60ml/hr.
[2024-03-23 03:55] VITALS: BP 92/58; PULSE 93; RESP 18; TEMP 36.7; O2SAT 98
[2024-03-23 03:57] VITALS: BP 92/58; PULSE 93; RESP 18; TEMP 36.7; O2SAT 98
[2024-03-23] MEDS: SODIUM CHLORIDE 0.9% IV 1,000 ML 80 ML IV CONT (04:57)
--- NOTE | 2024-03-23 06:00 | PC.NURSE ---
Pt tolerating Jevity @ 60ml/hr. Denies any nausea or abd pain. Increased to goal rate of 65ml/hr.
[2024-03-23 06:25] LABS: Hemoglobin 11.9 g/dL (14.0-18.0); Mean Corpuscular HGB Conc 32.2 g/dl (32-36); Mean Corpuscular Volume 96.4 fl (80-100); Mean Platelet Volume 10.5 fl (7.4-10.4); Platelet Count Result 139 k/mm3 (150-375); Red Blood Count 3.84 M/mm3 (4.6-6.20); Red Cell Distribution Width 13.2 % (11.5-14.5); White Blood Count 7.9 K/mm3 (4.5-10.0)
[2024-03-23 06:54] LABS: Alanine Aminotransferase 12 U/L (6-50); Albumin Level 2.9 g/dL (3.5-5.1); Alkaline Phosphatase 59 U/L (38-126); Anion Gap 4 mmol/L (4-12); Aspartate Amino Transferase 22 U/L (17-59); Bilirubin,Total 0.6 mg/dL (0.2-1.3); Blood Urea Nitrogen 19 mg/dL (9-20); Calcium 7.6 mg/dL (8.4-10.2); Carbon Dioxide 30 mmol/L (22-30); Chloride 101 mmol/L (98-107); Estimated CRCL calculation 54 ml/min; Estimated Glomerular Filt Rate > 60; Glucose 137 mg/dL (65-110); Potassium 4.1 mmol/L (3.4-5.0); Sodium 135 mmol/L (137-145)
[2024-03-23 08:00] VITALS: BP 106/58; PULSE 95; RESP 14; O2SAT 96
[2024-03-23] MEDS: CELECOXIB 200 MG CAPSULE PO (09:23)
[2024-03-23] MEDS: polyethylene glycoL 3350 17 GM POWD.PACK PO (09:24)
[2024-03-23] MEDS: SENNA/DOCUSATE SODIUM TABLET 2 TAB PO (09:24)
[2024-03-23] MEDS: HYDROcodone/acetaminophen (*CRX) 5-325 MG TABLET 1 TAB FEED TUBE ×2 (09:24→16:08)
--- NOTE | 2024-03-23 09:42 | PM.PNORT ---
Progress Note: A&P Assessment and Plan (1) Closed intertrochanteric fracture of left hip: Qualifiers: Encounter type: subsequent encounter Fracture alignment: displaced Fracture healing: with routine healing Qualified Code(s): S72.142D - Displaced intertrochanteric fracture of left femur, subsequent encounter for closed fracture with routine healing Code(s): S72.142A - Displaced intertrochanteric fracture of left femur, initial encounter for closed fracture Status: Acute Assessment and Plan: postoperative day 1 left hip fracture intramedullary fixation. Pain controlled. PT/OT with weight-bearing as tolerated. Preoperative foot drop from complications of his cancer treatment. Patient has brace for the foot at home. DVT prophylaxis. Patient would like to go home with home health when cleared medically. Okay from orthopedic standpoint when medically stable. (2) Foot drop, left: Code(s): M21.372 - Foot drop, left foot Status: Acute Subjective Subjective Date/Time Seen: 03/23/24 09:42 Post Op day: 1 Principal diagnosis: left hip fracture Interval history: patient awake alert. Up in chair. Surgical treatment and findings reviewed with the patient. Complains of mild pain left hip. Exam Const: General: healthy appearing; No in distress or confusion Orientation/consciousness: patient oriented x3 and No confusion HENMT: Head: normal to inspection, normocephalic and atraumatic Eyes: Conjunctivae: conjunctivae normal Sclera: sclerae normal Resp: Effort & Inspection: normal respiratory effort and no audible wheezes Neuro: General: patient oriented x3 and No confusion Extrem: Left lower extremity: hip/thigh Details: other ( Left hip incisions clean dry and intact. No drainage or erythema. Mild swelling. Muscle compartments soft.), lower leg ( negative Homans), ankle Details: abnormal ROM Details: with range as follows ( No active dorsiflexion or eversion consistent with preoperative. plantar flexion intact) and foot Details: normal capillary refill, vascular exam Details: dorsalis pedis pulse present and normal capillary refill, tendon exam active extension abnormal of all toes and motor-sensory exam light-touch normal in all toes Psych: Affect: normal affect Objective Data Vital Signs Vital Signs: Vital Signs - 24 hr 03/22/24 10:23 03/22/24 10:35 03/22/24 10:50 Temperature 97.8 F Pulse Rate 83 84 72 Respiratory Rate 14 18 14 Blood Pressure 147/75 H 134/72 134/70 Pulse Oximetry 98 100 100 Oxygen Delivery Simple Face Mask Simple Face Mask Room Air Oxygen Flow Rate 10 10 03/22/24 11:05 03/22/24 11:20 03/22/24 11:35 Temperature Pulse Rate 70 71 68 Respiratory Rate 14 14 14 Blood Pressure 138/77 132/68 124/73 Pulse Oximetry 95 98 96 Oxygen Delivery Room Air Room Air Room Air Oxygen Flow Rate 03/22/24 12:00 03/22/24 13:54 03/22/24 11:55 Temperature 97.4 F L Pulse Rate 75 Respiratory Rate 18 Blood Pressure 128/71 Pulse Oximetry 100 Oxygen Delivery Room Air Room Air Oxygen Flow Rate 03/22/24 12:10 03/22/24 12:40 03/22/24 17:29 Temperature 97.6 F 97.8 F 98.7 F Pulse Rate 73 70 77 Respiratory Rate 18 18 18 Blood Pressure 130/72 129/65 117/65 Pulse Oximetry 93 99 99 Oxygen Delivery Oxygen Flow Rate 03/22/24 20:10 03/22/24 20:00 03/23/24 00:00 Temperature 98.7 F 98.7 F 98.6 F Pulse Rate 77 77 90 Respiratory Rate 18 18 18 Blood Pressure 117/65 117/65 111/58 L Pulse Oximetry 99 99 95 Oxygen Delivery Oxygen Flow Rate 03/23/24 00:09 03/23/24 03:55 03/23/24 03:57 Temperature 98.6 F 98.1 F 98.1 F Pulse Rate 90 93 93 Respiratory Rate 18 18 18 Blood Pressure 111/58 L 92/58 L 92/58 L Pulse Oximetry 95 98 98 Oxygen Delivery Oxygen Flow Rate 03/23/24 08:00 Temperature Pulse Rate 95 Respiratory Rate 14 Blood Pressure 106/58 L Pulse Oximetry 96 Oxygen Delivery Oxygen Flow Rate
--- NOTE | 2024-03-23 10:53 | PCNFU ---
Nutrition Follow-Up Complete: Severe Protein Calorie Malnutrition as related to inadequate protein energy intake with increased protein-energy needs in setting of chronic disease (cancer) as evidenced by weight loss of 25% in 2 years, < 75% of EEN; severe subcutaneous fat loss (orbital fat pads) and severe muscle wasting ( temporalis, clavicle). Goal: Meet estimated nutritional needs Patient is meeting goal. No new goal Pt current nutrition is Jevity 1.5 at 65 ml/hr. Last recorded weight is 62.3 kg. Bowel Motility:Last reported BM 03/21 Labs Reviewed:Glu 137, Na 135, Hct 37.0.Hgb 11.9 Meds Noted: Miralax, Senokot Skin: WNL Additional Notes: Patient remains on tube feedings of Jevity 1.5 at 65 ml/hr and tolerating. Free water flush 100 ml q 4 hours. Tube feedings are providing 2145 kcal/90 gm protein/1087 ml water. Agree with diet orders. Will monitor weight, labs, skin, meds, tube feeding tolerance every Tuesday and Tuesday.
[2024-03-23] MEDS: FONDAPARINUX SODIUM 2.5 MG/0.5 ML SYRINGE SUB-Q (11:29)
--- NOTE | 2024-03-23 12:06 | P.CDI_ITS ---
CDI Query Clarification Request BMI: 18.1 Nutritional Diagnostic Statement: Please refer to the comprehensive nutrition assessment for further information. If you agree with diagnosis of Severe Protein Calorie Malnutrition as related to inadequate protein energy intake with increased protein-energy needs in setting of chronic disease (cancer) as evidenced by weight loss of 25% in 2 years, < 75% of EEN; severe subcutaneous fat loss (orbital fat pads) and severe muscle wasting ( temporalis, clavicle). Please specify severity if known: * Mild * Moderate * Severe * Other/Unknown <Jerrica Montana RN - Last Filed: 03/23/24 13:12> Clarified Diagnosis Clarified Diagnosis: Severe Protein Calorie Malnutrition <Lois Adrian APRN - Last Filed: 03/23/24 13:15>
--- NOTE | 2024-03-23 13:15 | P.DS_ITS ---
DS: Admitting Diagnosis Discharge Date 03/23/2024 Admitting Diagnosis Closed intertrochanteric fracture of left hip DS: Discharge Diagnosis Discharge Diagnosis (1) Closed intertrochanteric fracture of left hip: Qualifiers: Encounter type: subsequent encounter Fracture alignment: displaced Fracture healing: with routine healing Qualified Code(s): S72.142D - Displaced intertrochanteric fracture of left femur, subsequent encounter for closed fracture with routine healing Code(s): S72.142A - Displaced intertrochanteric fracture of left femur, initial encounter for closed fracture Status: Acute Assessment and Plan: * XR and CT reviewed * Orthopedics consulted * NPO after midnight * plan for left hip trochanteric nail 03/22 * Pain control * Antiemetics * Prophylactic antibiotics pre-surgery * SCD's * PT/OT post surgery * PPI (2) Fall from standing: Qualifiers: Encounter type: initial encounter Qualified Code(s): W19.XXXA - Unspecified fall, initial encounter Code(s): W19.XXXA - Unspecified fall, initial encounter Status: Acute Assessment and Plan: * mechanical due to malfunction of walker * will need PT/OT post surgical management of fracture * consider consultation to our care coordination for possible placement postoperatively * fall precautions (3) G tube feedings: Code(s): Z93.1 - Gastrostomy status Status: Acute Assessment and Plan: * at baseline patient blends his meals and gives it to himself through his G- tube, will discontinue this practice while in-patient * dietitian consulted for assistance with 2 feedings * Vital high protein continuous until discharge * elevate head of bed 45 to prevent aspiration Plan Disposition: Patient discharged to home with health DS: Summary Hospital Course Reason for hospitalization: Closed intertrochanteric fracture of left hip Hospital Course: 63 y/o M presents here with fall with PMH of lupus, depression, lung cancer s/p lobectomy, g-tube in place, and paraneoplastic syndrome. The patient presents here from home via EMS for further evaluation of left hip pain s/p ground level fall. The patient reports he was transferring from his car to his walker when the walker did not open up sliding forward and patient fell to the left. The patient landed first on his left knee and then his left hip. He denies head strike or loss of consciousness. Patient was unable to bear weight on the left lower extremity or move his left lower extremity without significant pain after the fall. Patient denies focal numbness, tingling, or weakness. Patient reports at baseline he utilizes a power chair and walker for mobility assistance. No other complaints at this time 03/22/24: Assumed Care Patient seen post-op doing well with no complaints, minimal pain. Started patient on tube feedings high protein for healing. Patient denied CP, SOB, fever, chills, N/V. Site clean and dry no swelling or erythema. 03/23/24: DISCHARGED Patient underwent reduction with intramedullary nail fixation left hip intertrochanteric fracture, post-op with no complications. Heide
--- NOTE | 2024-03-23 13:15 | PM.DS ---
DS: Admitting Diagnosis Discharge Date 03/23/2024 Admitting Diagnosis Closed intertrochanteric fracture of left hip DS: Discharge Diagnosis Discharge Diagnosis (1) Closed intertrochanteric fracture of left hip: Qualifiers: Encounter type: subsequent encounter Fracture alignment: displaced Fracture healing: with routine healing Qualified Code(s): S72.142D - Displaced intertrochanteric fracture of left femur, subsequent encounter for closed fracture with routine healing Code(s): S72.142A - Displaced intertrochanteric fracture of left femur, initial encounter for closed fracture Status: Acute Assessment and Plan: XR and CT reviewed Orthopedics consulted NPO after midnight plan for left hip trochanteric nail 03/22 Pain control Antiemetics Prophylactic antibiotics pre-surgery SCD's PT/OT post surgery PPI (2) Fall from standing: Qualifiers: Encounter type: initial encounter Qualified Code(s): W19.XXXA - Unspecified fall, initial encounter Code(s): W19.XXXA - Unspecified fall, initial encounter Status: Acute Assessment and Plan: mechanical due to malfunction of walker will need PT/OT post surgical management of fracture consider consultation to our care coordination for possible placement postoperatively fall precautions (3) G tube feedings: Code(s): Z93.1 - Gastrostomy status Status: Acute Assessment and Plan: at baseline patient blends his meals and gives it to himself through his G-tube, will discontinue this practice while in-patient dietitian consulted for assistance with 2 feedings Vital high protein continuous until discharge elevate head of bed 45 to prevent aspiration Plan Disposition: Patient discharged to home with health DS: Summary Hospital Course Reason for hospitalization: Closed intertrochanteric fracture of left hip Hospital Course: 63 y/o M presents here with fall with PMH of lupus, depression, lung cancer s/p lobectomy, g-tube in place, and paraneoplastic syndrome. The patient presents here from home via EMS for further evaluation of left hip pain s/p ground level fall. The patient reports he was transferring from his car to his walker when the walker did not open up sliding forward and patient fell to the left. The patient landed first on his left knee and then his left hip. He denies head strike or loss of consciousness. Patient was unable to bear weight on the left lower extremity or move his left lower extremity without significant pain after the fall. Patient denies focal numbness, tingling, or weakness. Patient reports at baseline he utilizes a power chair and walker for mobility assistance. No other complaints at this time 03/22/24: Assumed Care Patient seen post-op doing well with no complaints, minimal pain. Started patient on tube feedings high protein for healing. Patient denied CP, SOB, fever, chills, N/V. Site clean and dry no swelling or erythema. 03/23/24: DISCHARGED Patient underwent reduction with intramedullary nail fixation left hip intertrochanteric fracture, post-op with no complications. Patient with no complaints on day of discharge up in chair and pain controlled during PT/OT. Site clean, dry no erythema or edema. Patient was discharged to home with home health and family and can resume his previous tube feedings will need to follow-up with ortho in 5 weeks. Labs and vitals reviewed and stable at discharge. Status at Discharge Functional status at discharge: uses cane/walker Overall status at discharge: patient is progressing back to baseline Time Spent with Patient Time attestation: Total time spent providing and/or coordinating discharge services: Time spent: Greater than 30 minutes Exam Narrative: dysarthria, chronic. feet cool to the touch, symmetric. DP pulse 1+ bilaterally. No shortening or rotation of LLE. tenderness ov
[2024-03-23 13:29] VITALS: BP 115/65; PULSE 72; RESP 12; O2SAT 100
== END 2024-03-23 16:15 | disposition home health service (06) | DRG 480 ==
LOC: ANHED 15:29 → ANH2MED 16:25
PROVIDERS: Orthopaedic Surgery; Admitting Provider Internal Medicine; Emergency Provider Emergency Medicine; PCP Family Medicine; Visit Provider Nurse Practitioner Family
PROC: 0QS736Z Reposition Left Upper Femur with Intramedullary Internal Fixation Device, Percutaneous Approach (ICD-10-PCS; CPT 27245; principal; 2024-03-22 08:30)
DX: S72.142A Displaced intertrochanteric fracture of left femur, initial encounter for closed fracture (principal); E43 Unspecified severe protein-calorie malnutrition; Z68.1 Body mass index [BMI] 19.9 or less, adult; W19.XXXA Unspecified fall, initial encounter; Z93.1 Gastrostomy status; F17.210 Nicotine dependence, cigarettes, uncomplicated; G13.0 Paraneoplastic neuromyopathy and neuropathy; M21.372 Foot drop, left foot; M17.12 Unilateral primary osteoarthritis, left knee; M16.12 Unilateral primary osteoarthritis, left hip; Z98.1 Arthrodesis status; Z90.2 Acquired absence of lung [part of]; Z85.118 Personal history of other malignant neoplasm of bronchus and lung
CPT/HCPCS: 36415; 71045; 73502; 73562; 73700; 80053; 85025; 85027; 85610; 85730; 86850; 86900; 86901; 93005; 96361; 96374; 97110; 97161; 97165; 97530; 97535; 99199; 99285; A9270; C1713; G0378; J0690; J1652; J1885; J2270; J2405; J2704; J3010; J7030; J7120